=== PATIENT | male | born 1970 | race Hispanic/Latino ===

== ENCOUNTER 2016-11-02 14:26 | Observation (INO) | payer SELFPAY ==
[~2016-11-02 14:26] MED LIST: Sodium Chloride 0.9% 2,000 ML PRIMARY IV ONE
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
[2016-11-02 14:40] LABS: BASOPHILS # (AUTO) 0.03 10*3/UL; BASOPHILS % (AUTO) 0.2 % (0-1); EOSINOPHILS # (AUTO) 0.11 10*3/UL; EOSINOPHILS % (AUTO) 0.7 % (0-8); HEMOGLOBIN 16.9 g/dL (14.0-18.0); LYMPHOCYTES # (AUTO) 1.03 10*3/uL; MEAN CORPUSCULAR HEMOGLOBIN 29.8 PG (27-31); MEAN CORPUSCULAR VOLUME 82.9 FL (80-90); MEAN PLATELET VOLUME 9.3 FL (7.4-12.2); MONOCYTES % (AUTO) 5.6 % (5-15); NEUTROPHILS # (AUTO) 13.86 10*3/UL; NEUTROPHILS % (AUTO) 86.5 % (50-80); RED BLOOD COUNT 5.67 10^6/uL (4.70-6.10)
[2016-11-02 14:42] LABS: PLATELET MORPHOLOGY COMMENT NORMAL MORPHOLOGY (NORM); RBC MORPHOLOGY COMMENT NORMAL MORPHOLOGY (NORM); WBC MORPHOLOGY COMMENT NORMAL MORPHOLOGY (NORM)
[2016-11-02 14:45] LABS: BLOOD UREA NITROGEN 14 mg/dL (7-22); C-REACTIVE PROTEIN < 0.5 mg/dL (0.0-0.9); CALCIUM 10.1 mg/dL (8.7-10.7); EST GLOMERULAR FILTRATION > 60 (>60 ml/min/1.73m(2)); SERUM ALBUMIN 5.2 g/dL (3.5-4.8)
--- NOTE | 2016-11-02 15:17 | DI ---
CT ABD W/CN AND PELVIS W/CN,11/02/2016 2:24 PM: Clinical History: Hematemesis. Previous Exam: None at this facility. Findings: Multiple helically acquired CT images are obtained through the abdomen and pelvis following intraveno us administration of contrast. There are multiple fluid-filled loops of small bowel which appear grossly normal. The colon is also f luid-filled and is grossly normal. The lung bases are clear. The stomach is not well evaluated as it is poorly distended. The pancreas, spleen, adrenals and kidneys are normal. The liver and gallbladder are normal. The major vascular flow voids are unremarkable. The urinary bladder is also unremarkable. Ureters are normal in course and caliber. The distal esophagus is grossly normal, but not well evaluated. There is no mesenteric or retroperitoneal lymphadenopathy. There is no subdiaphragmatic free air. Impression: Fluid filling the small and large bowel. This can be seen in gastroenteritis or other infectious proc ess. There is no obvious source of bleeding.
[2016-11-02 17:02] LABS: BILIRUBIN,URINE NEGATIVE (NEG); CLARITY,URINE CLEAR (CLEAR); COLOR,URINE YELLOW; GLUCOSE, URINE (UA) NEGATIVE (NEG); NITRATE,URINE NEGATIVE (NEG); OCCULT BLOOD,URINE Trace-lysed (NEG); PROTEIN,URINE NEGATIVE (NEG); UROBILINOGEN,URINE 0.2 EU/dL (0.2)
[2016-11-02 17:09] LABS: SQUAMOUS EPITHELIAL CELL,UR RARE; URINE SAMPLE TYPE CLEAN CATCH URINE; WBC,URINE 0-1
[2016-11-02] MEDS ORDERED: LIDOCAINE W/ SODIUM BICARB 0.5 ML SYR SUBD PRN (17:57)
[2016-11-02] MEDS ORDERED: NORMAL SALINE 10 ML SYRINGE FLUSH IVP PRN (17:57)
[2016-11-02 17:58] VITALS: RESP 16
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
[2016-11-02] MEDS: Pantoprazole Inj 40 MG in Normal Saline Flush 10 ML IVP SCH (18:47)
[2016-11-02 22:25] LABS: BASOPHILS # (AUTO) 0.02 10*3/UL; BASOPHILS % (AUTO) 0.3 % (0-1); EOSINOPHILS # (AUTO) 0.13 10*3/UL; EOSINOPHILS % (AUTO) 1.8 % (0-8); HEMATOCRIT 41.8 % (42.0-52.0); HEMOGLOBIN 15.1 g/dL (14.0-18.0); LYMPHOCYTES # (AUTO) 1.47 10*3/uL; MEAN CORPUSCULAR HEMOGLOBIN 30.1 PG (27-31); MEAN CORPUSCULAR HGB CONC 36.1 g/dL (33-37); MEAN CORPUSCULAR VOLUME 83.4 FL (80-90); MEAN PLATELET VOLUME 9.1 FL (7.4-12.2); MONOCYTES # (AUTO) 0.56 10*3/UL (0.3-0.8); MONOCYTES % (AUTO) 7.7 % (5-15); NEUTROPHILS # (AUTO) 5.08 10*3/UL; NEUTROPHILS % (AUTO) 69.6 % (50-80); RED BLOOD COUNT 5.01 10^6/uL (4.70-6.10)
[2016-11-02 22:28] LABS: PLATELET MORPHOLOGY COMMENT NORMAL MORPHOLOGY (NORM); RBC MORPHOLOGY COMMENT NORMAL MORPHOLOGY (NORM); WBC MORPHOLOGY COMMENT NORMAL MORPHOLOGY (NORM)
[2016-11-03] MEDS: Pantoprazole Inj 40 MG in Normal Saline Flush 10 ML IVP SCH (05:00)
[2016-11-03 05:24] LABS: BASOPHILS # (AUTO) 0.03 10*3/UL; BASOPHILS % (AUTO) 0.6 % (0-1); EOSINOPHILS # (AUTO) 0.19 10*3/UL; EOSINOPHILS % (AUTO) 3.7 % (0-8); HEMATOCRIT 41.9 % (42.0-52.0); HEMOGLOBIN 14.6 g/dL (14.0-18.0); LYMPHOCYTES # (AUTO) 1.99 10*3/uL; MEAN CORPUSCULAR HEMOGLOBIN 29.6 PG (27-31); MEAN CORPUSCULAR HGB CONC 34.8 g/dL (33-37); MEAN PLATELET VOLUME 9.5 FL (7.4-12.2); MONOCYTES # (AUTO) 0.61 10*3/UL (0.3-0.8); MONOCYTES % (AUTO) 11.8 % (5-15); NEUTROPHILS # (AUTO) 2.31 10*3/UL; NEUTROPHILS % (AUTO) 44.5 % (50-80); RED BLOOD COUNT 4.93 10^6/uL (4.70-6.10)
[2016-11-03 05:25] LABS: PLATELET MORPHOLOGY COMMENT NORMAL MORPHOLOGY (NORM); RBC MORPHOLOGY COMMENT NORMAL MORPHOLOGY (NORM); WBC MORPHOLOGY COMMENT NORMAL MORPHOLOGY (NORM)
[2016-11-03 05:38] LABS: BLOOD UREA NITROGEN 11 mg/dL (7-22); BUN/CREATININE RATIO 12.22 (6-20); CALCIUM 7.5 mg/dL (8.7-10.7); EST GLOMERULAR FILTRATION > 60 (>60 ml/min/1.73m(2))
[2016-11-03 07:33] VITALS: TEMP 97.9
--- NOTE | 2016-11-03 07:37 | PDOC(PROG) ---
Date and Time of Service: 11/03/2016 7:37 AM Interval History: Subjective He said he feels 100 percent better compared to when he came in. No more vomiting. He did have some loose stool but much less than before. It is brown in color no blood. No abdominal pain. He has an appointment with his physician tomorrow. Objective : Data - Labs CBC and BMP: 11/03/16 05:00 11/03/16 05:00 Labs - Last 24 Hours: Laboratory Results 11/02/16 11/02/16 11/03/16 Range/Units 16:59 21:00 05:00 WBC 7.30 5.18 (4.8-10.8) 10^3/uL RBC 5.01 4.93 (4.70-6.10) 10^6/uL Hgb 15.1 14.6 (14.0-18.0) g/dL Hct 41.8 L 41.9 L (42.0-52.0) % MCV 83.4 85.0 (80-90) FL MCH 30.1 29.6 (27-31) PG MCHC 36.1 34.8 (33-37) g/dL RDW Std Deviation 40.8 42.1 (39-50) fL RDW Coeff of Magdaleno 13.7 13.8 (11.5-14.5) % Plt Count 177 178 (140-350) 10*3/uL MPV 9.1 9.5 (7.4-12.2) FL Immature Gran % (Auto) 0.5 1.0 (0-5) % Neut % (Auto) 69.6 44.5 L (50-80) % Lymph % (Auto) 20.1 38.4 (10-50) % [place] % (Auto) 7.7 11.8 (5-15) % Eos % (Auto) 1.8 3.7 (0-8) % Baso % (Auto) 0.3 0.6 (0-1) % Immature Gran # (Auto) 0.04 0.05 10*3/UL Neut # (Auto) 5.08 2.31 10*3/UL Lymph # (Auto) 1.47 1.99 10*3/uL [place] # (Auto) 0.56 0.61 (0.3-0.8) 10*3/UL Eos # (Auto) 0.13 0.19 10*3/UL Baso # (Auto) 0.02 0.03 10*3/UL WBC Morphology Comment Normal morphology Normal morphology (NORM) Plt Morphology Comment Normal morphology Normal morphology (NORM) RBC Morph Comment Normal morphology Normal morphology (NORM) Sodium 141 (135-145) meq/L Potassium 4.0 (3.8-5.2) meq/L Chloride 112 (98-112) meq/L Carbon Dioxide 22 L (23-33) meq/L Anion Gap 7 (5-20) BUN 11 (7-22) mg/dL Creatinine 0.9 (0.70-1.50) mg/dL Estimated GFR > 60 (>60 ml/min/1.73m(2)) BUN/Creatinine Ratio 12.22 (6-20) Glucose 81 (78-110) mg/dL Calculated Osmolality 289.0 (267-292) mOsm/kg Lactic Acid 0.8 (0.70-2.10) MMOL/L Calcium 7.5 L (8.7-10.7) mg/dL Total Bilirubin 1.9 H (0.3-1.2) mg/dL AST 24 (21-57) IU/L ALT 41 (21-72) IU/L Alkaline Phosphatase 43 (38-126) IU/L Total Protein 5.5 L (6.1-8.0) g/dL Albumin 3.0 L (3.5-4.8) g/dL Globulin 2.5 (2.50-4.10) g/dL Albumin/Globulin Ratio 1.20 L (1.3-2.0) mg/g Ur Collection Type Clean catch urine Urine Color Yellow Urine Clarity Clear (CLEAR) Urine pH 5.0 (5.0-8.5) Ur Specific [place] 1.010 (1.005-1.030) Urine Protein Negative (NEG) mg/dl Urine Glucose (UA) Negative (NEG) mg/dL Urine Ketones Negative (NEG) Urine Occult Blood Trace-lysed H (NEG) Urine Nitrate Negative (NEG) Urine Bilirubin Negative (NEG) Urine Urobilinogen 0.2 (0.2) EU/dL Ur Leukocyte Esterase Negative (NEG) Urine RBC 1-3 (NONE) /hpf Urine WBC 0-1 (NONE) Ur Squamous Epith Cells Rare (NONE) Ur Renal Epithelial Cell None (NONE) Urine Crystals None Urine Bacteria None (NONE) Urine Casts None (NONE) Urine Mucus None (NONE) Urine Trichomonas None (NONE) Urine Yeast None (NONE) Ur Culture Indicated? Culture not set Objective : Exam - General General Appearance: No Acute Distress, Cooperative - Head Head Exam: Normal Inspection, Atraumatic - Eye Eye Exam: Normal Appearance - ENT ENT Exam: Normal Exam - Neck Neck Exam: Normal Inspection - Respiratory Respiratory Exam: Clear to Auscultation - Bilaterally - Cardiovascular Cardiovascular Exam: RRR - GI/Abdominal GI/Abdominal Exam: Normal Bowel Sounds, Non Tender, Non Distended, Soft - Rectal Rectal Exam: Deferred - External Exam: Deferred Exam: Deferred - Extremities Extremities Exam: Normal Inspection - Back Back Exam: Normal Inspection - Neurological Neurological Exam: Alert, Oriented x 3, CN II-XII Intact, Moves All Extremities Equally - Psychiatric Psychiatric Exam: Normal Affect Assessment and Plan - Patient Problems (1) Vomiting and diarrhea Current Visit: Yes Status: Acute Comment: The vomiting resolved. The diarrhea is also improving. I told him this is either a gastroenteritis which is my inclination or side effect of the medication. For the time being will hold his HIV medication since yesterday was the first time that he took it , he has an appointment with his physician tomorrow I told him to discuss that with him and then they can decide if they want him to continue with the medication. will Advance his diet if he is still fine I think we'll discharge him home. There is no significant drop in the hemoglobin. He can follow-up with his primary and discuss with him EGD as an outpatient. (2) Metabolic acidosis Current Visit: Yes Status: Acute Comment: This is resolved (3) HIV (human immunodeficiency virus infection) Current Visit: Yes Status: Acute Comment: Need follow-up with his physician tomorrow
--- NOTE | 2016-11-03 08:36 | DCSUMMARY ---
Hospitalization Summary Admit Date: 11/02/16 Discharge Date: 11/03/16 Hospital Course: Discharge diagnoses 1. Gastroenteritis 2. Recent diagnosis of HIV 3. Hypokalemia resolved Hospital course This is a 46 years old male with medical history significant for recent diagnosis of HIV about 2 weeks ago he does not know his CD4 count or viral load , he said he had blood test done the day before admission, he is from [facility] was heading to [place]. on the admission he took the first dosage of his HIV medication Genvoya . He did have some Macroni and cheese and on the morning of admission and he stopped at a rest areas as he was having abdominal cramping, vomiting and diarrhea. He had multiple diarrhea episodes with multiple vomiting. There was no fever. The medics were called who they thought that he may be was confused and was sweating. They gave him some fluid and they brought him to the ER by the time he came into the ER he was improved. He did give a history of maybe some blood after he vomited. He was given fluids and was admitted for observation. By time I saw him he was feeling better. His abdominal examination was not remarkable. His lab test when he came in did show elevated white count and hypokalemia and metabolic acidosis with increased anion gap. Lactic acid level was normal. We continued with hydration, CT of her abdomen was negative except showed fluid- filled small bowel. The next day he was feeling better his white count normalized, acidosis resolved. Test for C. difficile was negative, Giardia and crypotsporiudium were negative. There was no white cells in the stool. The next day he was feeling better much better he said 100% better, his exam was not remarkable he tolerated diet so we thought that he could be discharged home. I think its either this was gastroenteritis or side effect of medication , I told him to hold the medication until he sees his physician as his appointment with him tomorrow is tomorrow. I did put him on some Protonix when he came in and discharged him on Prilosec. There was no significant drop in the hemoglobin I think initially he had hemoconcentration and I think it dropped with hydration. The hemoglobin on discharge was 14.6. He can discuss with his physician the need to have EGD as an outpatient. Laboratory Results 11/02/16 11/02/16 11/02/16 Range/Units 13:58 14:24 16:59 WBC 16.02 H (4.8-10.8) 10^3/uL RBC 5.67 (4.70-6.10) 10^6/uL Hgb 16.9 (14.0-18.0) g/dL Hct 47.0 (42.0-52.0) % MCV 82.9 (80-90) FL MCH 29.8 (27-31) PG MCHC 36.0 (33-37) g/dL RDW Std Deviation 40.9 (39-50) fL RDW Coeff of Magadleno 13.6 (11.5-14.5) % Plt Count 179 (140-350) 10*3/uL MPV 9.3 (7.4-12.2) FL Immature Gran % (Auto) 0.6 (0-5) % Neut % (Auto) 86.5 H (50-80) % Lymph % (Auto) 6.4 L (10-50) % Stanley % (Auto) 5.6 (5-15) % Eos % (Auto) 0.7 (0-8) % Baso % (Auto) 0.2 (0-1) % Immature Gran # (Auto) 0.09 10*3/UL Neut # (Auto) 13.86 10*3/UL Lymph # (Auto) 1.03 10*3/uL Stanley # (Auto) 0.90 H (0.3-0.8) 10*3/UL Eos # (Auto) 0.11 10*3/UL Baso # (Auto) 0.03 10*3/UL WBC Morphology Comment Normal morphology (NORM) Plt Morphology Comment Normal morphology (NORM) RBC Morph Comment Normal morphology (NORM) PT 10.3 (9.7-11.4) secs INR 1.00 (0.00-5.90) N/A Sodium 143 (135-145) meq/L Potassium 3.3 L (3.8-5.2) meq/L Chloride 104 (98-112) meq/L Carbon Dioxide 17 L (23-33) meq/L Anion Gap 22 H (5-20) BUN 14 (7-22) mg/dL Creatinine 1.0 (0.70-1.50) mg/dL Estimated GFR > 60 (>60 ml/min/1.73m(2)) BUN/Creatinine Ratio 14.00 (6-20) Glucose 107 (78-110) mg/dL Calculated Osmolality 296.0 H (267-292) mOsm/kg Lactic Acid (0.70-2.10) MMOL/L Calcium 10.1 (8.7-10.7) mg/dL Magnesium 2.0 (1.6-2.4) mg/dL Total Bilirubin 1.9 H (0.3-1.2) mg/dL AST 32 (21-57) IU/L ALT 57 (21-72) IU/L Alkaline Phosphatase 80 (38-126) IU/L C-Reactive Protein < 0.5 (0.0-0.9) mg/dL Total Protein 9.1 H (6.1-8.0) g/dL Albumin 5.2 H (3.5-4.8) g/dL Globulin 3.9 (2.50-4.10) g/dL Albumin/Globulin Ratio 1.30 (1.3-2.0) mg/g Ur Collection Type Clean catch urine Urine Color Yellow Urine Clarity Clear (CLEAR) Urine pH 5.0 (5.0-8.5) Ur Specific Violet 1.010 (1.005-1.030) Urine Protein Negative (NEG) mg/dl Urine Glucose (UA) Negative (NEG) mg/dL Urine Ketones Negative (NEG) Urine Occult Blood Trace-lysed H (NEG) Urine Nitrate Negative (NEG) Urine Bilirubin Negative (NEG) Urine Urobilinogen 0.2 (0.2) EU/dL Ur Leukocyte Esterase Negative (NEG) Urine RBC 1-3 (NONE) /hpf Urine WBC 0-1 (NONE) Ur Squamous Epith Cells Rare (NONE) Ur Renal Epithelial Cell None (NONE) Urine Crystals None Urine Bacteria None (NONE) Urine Casts None (NONE) Urine Mucus None (NONE) Urine Trichomonas None (NONE) Urine Yeast None (NONE) Ur Culture Indicated? Culture not set 11/02/16 11/03/16 Range/Units 21:00 05:00 WBC 7.30 5.18 (4.8-10.8) 10^3/uL RBC 5.01 4.93 (4.70-6.10) 10^6/uL Hgb 15.1 14.6 (14.0-18.0) g/dL Hct 41.8 L 41.9 L (42.0-52.0) % MCV 83.4 85.0 (80-90) FL MCH 30.1 29.6 (27-31) PG MCHC 36.1 34.8 (33-37) g/dL RDW Std Deviation 40.8 42.1 (39-50) fL RDW Coeff of Magdaleno 13.7 13.8 (11.5-14.5) % Plt Count 177 178 (140-350) 10*3/uL MPV 9.1 9.5 (7.4-12.2) FL Immature Gran % (Auto) 0.5 1.0 (0-5) % Neut % (Auto) 69.6 44.5 L (50-80) % Lymph % (Auto) 20.1 38.4 (10-50) % Stanley % (Auto) 7.7 11.8 (5-15) % Eos % (Auto) 1.8 3.7 (0-8) % Baso % (Auto) 0.3 0.6 (0-1) % Immature Gran # (Auto) 0.04 0.05 10*3/UL Neut # (Auto) 5.08 2.31 10*3/UL Lymph # (Auto) 1.47 1.99 10*3/uL Stanley # (Auto) 0.56 0.61 (0.3-0.8) 10*3/UL Eos # (Auto) 0.13 0.19 10*3/UL Baso # (Auto) 0.02 0.03 10*3/UL WBC Morphology Comment Normal morphology Normal morphology (NORM) Plt Morphology Comment Normal morphology Normal morphology (NORM) RBC Morph Comment Normal morphology Normal morphology (NORM) PT (9.7-11.4) secs INR (0.00-5.90) N/A Sodium 141 (135-145) meq/L Potassium 4.0 (3.8-5.2) meq/L Chloride 112 (98-112) meq/L Carbon Dioxide 22 L (23-33) meq/L Anion Gap 7 (5-20) BUN 11 (7-22) mg/dL Creatinine 0.9 (0.70-1.50) mg/dL Estimated GFR > 60 (>60 ml/min/1.73m(2)) BUN/Creatinine Ratio 12.22 (6-20) Glucose 81 (78-110) mg/dL Calculated Osmolality 289.0 (267-292) mOsm/kg Lactic Acid 0.8 (0.70-2.10) MMOL/L Calcium 7.5 L (8.7-10.7) mg/dL Magnesium (1.6-2.4) mg/dL Total Bilirubin 1.9 H (0.3-1.2) mg/dL AST 24 (21-57) IU/L ALT 41 (21-72) IU/L Alkaline Phosphatase 43 (38-126) IU/L C-Reactive Protein (0.0-0.9) mg/dL Total Protein 5.5 L (6.1-8.0) g/dL Albumin 3.0 L (3.5-4.8) g/dL Globulin 2.5 (2.50-4.10) g/dL Albumin/Globulin Ratio 1.20 L (1.3-2.0) mg/g Ur Collection Type Urine Color Urine Clarity (CLEAR) Urine pH (5.0-8.5) Ur Specific Violet (1.005-1.030) Urine Protein (NEG) mg/dl Urine Glucose (UA) (NEG) mg/dL Urine Ketones (NEG) Urine Occult Blood (NEG) Urine Nitrate (NEG) Urine Bilirubin (NEG) Urine Urobilinogen (0.2) EU/dL Ur Leukocyte Esterase (NEG) Urine RBC (NONE) /hpf Urine WBC (NONE) Ur Squamous Epith Cells (NONE) Ur Renal Epithelial Cell (NONE) Urine Crystals Urine Bacteria (NONE) Urine Casts (NONE) Urine Mucus (NONE) Urine Trichomonas (NONE) Urine Yeast (NONE) Ur Culture Indicated? Discharge instruction Diet regular Activity as started Medication Home Medications Elviteg/Lisa/Emtric/Tenofo Ala [Genvoya Tablet] 1 tab PO DAILY 11/02/16 [ History Confirmed 11/02/16] hold until he sees his physician Omeprazole [PriLOSEC] 20 mg PO DAILY #14 capsule. 11/03/16 [Rx] Condition at discharge was stable for discharge Follow-up his primary as scheduled tomorrow Exam - Vitals Vital Signs: Vital Signs Temperature 97.9 F Temperature Source Temporal Artery Scan Pulse Rate [Pulse Oximeter 69 Right] Respiratory Rate 16 Blood Pressure [Right Arm] 102/65 Pulse Ox 94 Oxygen Delivery Method Room Air Height 5 ft 7 in Weight 169 lb 6.4 oz Patient Problems - Patient Problem List (1) Vomiting and diarrhea Current Visit: Yes Status: Acute (2) Metabolic acidosis Current Visit: Yes Status: Acute (3) HIV (human immunodeficiency virus infection) Current Visit: Yes Status: Acute
[2016-11-05 13:47] LABS: PARASITIC EXAM FIN 1802 (())
== END 2016-11-03 10:17 | disposition home or self-care (01) ==
LOC: ER 14:26 → MED/SURG 16:11
PROVIDERS: ADMIT Internal Medicine; ATTEND Internal Medicine
DX: K52.9 Noninfective gastroenteritis and colitis, unspecified (principal); B20 Human immunodeficiency virus [HIV] disease; E87.2 Acidosis
CPT/HCPCS: 36415; 74177; 80053; 81001; 81003; 83605; 83735; 85025; 85610; 86140; 87046; 87177; 87205; 87209; 87328; 87329; 87493; 94761; 96360; 96361; 96374; 99284; J3490